=== PATIENT | female | born 1985 | race Caucasian/White ===

== ENCOUNTER 2019-10-09 18:11 | Emergency (ER) | payer BC ==
[~2019-10-09] VITALS: Ht 167.6 cm; Wt 81.7 kg
[2019-10-09] MEDS ORDERED: TOPROL XL25 MG PO (18:21)
[2019-10-09 18:35] LABS: ABSOLUTE EOSINOPHILS 0.1 thou/uL (0.0-0.7); ABSOLUTE LYMPHOCYTES 3.4 thou/uL (0.8-5.3); ABSOLUTE MONOCYTES 0.6 thou/uL (0.0-1.2); ABSOLUTE NEUTROPHILS 4.9 thou/uL (1.6-8.1); BASOPHILS 0.4 %; EOSINOPHILS 0.8 %; HEMATOCRIT 40.4 % (37.0-47.0); HEMOGLOBIN 13.8 gm/dL (12.0-15.0); LYMPHOCYTES 37.6 %; MCH 32.2 pg (26.0-34.0); MCHC 34.3 g/dL (28.0-37.0); MPV 7.1 fl. (7.2-11.1); NUCLEATED RBCS 0 /100WBC; PLATELET COUNT* 314 thou/uL (150-400); POLYS 54.2 %; RDW-CV 13.1 % (10.5-14.5)
[2019-10-09] MEDS ORDERED: BACTRIM DS TAB1 EAC1 PO (18:37)
[2019-10-09] MEDS ORDERED: KETOCONAZOLE15 GM TP (18:38)
[2019-10-09] MEDS ORDERED: FLAGYL375 MG PO (18:38)
[2019-10-09 18:43] LABS: CALCIUM 8.4 mg/dL (8.5-10.1); POTASSIUM 3.3 mmol/L (3.5-5.1)
[2019-10-09 18:48] LABS: TOTAL BILIRUBIN 0.3 mg/dL (<0.1-1.0)
[2019-10-09] MEDS ORDERED: ATIVAN0.5 M1 PO (20:13)
[2019-10-09] MEDS ORDERED: ZOFRAN ODT4 MG PO (20:29)
[2019-10-09 20:38] VITALS: BP 120/73
--- NOTE | 2019-10-10 10:15 | EKG ---
[place] [address] ELECTROCARDIOGRAM REPORT Name: RASHEEDA ASENCIO Room: [facility]#: [id number] Admission: 10/09/19 Attend Phys: Discharge: 10/09/19 Date of : 83 Report #: [id number] THIS REPORT FOR: //name// [facility] ED Test Date: 2019-10-09 Test Time: 19:20:15 Pat Name: RASHEEDA ASENCIO Department: Room: Gender: F [employer] Plant Supervisor: RASHMI : 1985 Requested By: Krzysztof Clifton Order Number: [id number] MD: Dutch Lam Measurements Intervals [place] Rate: 92 P: 48 AK: 160 QRS: 44 QRSD: 91 T: 7 QT: 366 QTc: 453 Interpretive Statements Sinus rhythm No previous ECG available for comparison Electronically Signed On 10-10-2019 10:15:19 PR MANAGER by Dutch Lam [email or web address] <ELECTRONICALLY SIGNED> By: Dutch Lam MD, [facility] 10/10/19 1015 1920 1920 Dutch Lam MD, FACC /EPI
== END 2019-10-09 20:38 | disposition home or self-care (01) ==
LOC: M.ERS 18:11
PROVIDERS: Nurse Practitioner Psychiatric/Mental Health
DX: R42 Dizziness and giddiness (principal); H53.8 Other visual disturbances; R07.9 Chest pain, unspecified; G40.909 Epilepsy, unspecified, not intractable, without status epilepticus; R11.0 Nausea; R51 Headache; J34.89 Other specified disorders of nose and nasal sinuses